=== PATIENT | female | born 1960 | race Caucasian/White ===

== ENCOUNTER → 2020-11-01 | Outpatient (CLI) | payer BC ==
[2016-03-25 14:15] VITALS: BP 132/63
[~2020-11-01] MED LIST: LEVO50TA PO; MULT-445 PO; NORE1TAB7 PO
--- NOTE | 2020-11-01 17:11 | RAD ---
EXAM: THYROID ULTRASOUND. HISTORY: Thyroid enlargement, lymphadenopathy. COMPARISON: None. FINDINGS: Sonographic evaluation of the thyroid gland was performed and evaluated using ACR TI-RADS c riteria. Right lobe: The right lobe measures 3.4 x 1.2 x 1.2 cm. The parenchyma is heterogeneous and hypoechoi c. A 2 mm cyst appears benign. Left lobe: The left lobe measures 3.2 x 1.2 x 0.8 cm. The parenchyma is heterogeneous and hypoechoic. Isthmus: The isthmus measures 2 mm. There are no pathologically enlarged cervical lymph nodes bilaterally. IMPRESSION/RECOMMENDATION: 1. The thyroid is somewhat atrophic. Correlate for prior thyroiditis. Electronically signed by: Kirstin Aguilar MD (11/01/2020 5:09 PM) [id number]
== END ==
LOC: US 12:47
PROVIDERS: ATTEND Physician Assistant Medical
DX: E03.4 Atrophy of thyroid (acquired) (principal); E04.1 Nontoxic single thyroid nodule
CPT/HCPCS: 76536